=== PATIENT | female | born 1990 | race Caucasian/White ===

== ENCOUNTER 2017-08-30 07:21 | Emergency (ER) | payer OTHER ==
[~2017-08-30] VITALS: Ht 162.5 cm; Wt 52.2 kg
[2017-08-30] MEDS ORDERED: ZOFRAN ODT4 MG SL (09:29)
== END 2017-08-30 09:48 | disposition home or self-care (01) ==
LOC: ED 07:21
DX: L29.9 Pruritus, unspecified (principal); T78.40XA Allergy, unspecified, initial encounter; R42 Dizziness and giddiness; Z88.7 Allergy status to serum and vaccine; Y92.9 Unspecified place or not applicable

== ENCOUNTER 2017-09-17 12:34 | Emergency (ER) | payer OTHER ==
[~2017-09-17] VITALS: Ht 165.1 cm; Wt 50.8 kg
[~2017-09-17 12:34] MED LIST: ZOFRAN ODT4 MG SL
[2017-09-17 13:10] LABS: BASO # 0.1 10*3/uL (0.0-0.1); BASO % 0.7 % (0.0-1.0); EOS % 0.4 % (1.0-4.0); HEMOGLOBIN 13.5 g/dl (12.0-16.0); LYMPH # 2.4 10*3/uL (1.3-4.4); LYMPH % 26.3 % (27.0-41.0); MEAN CELL VOLUME 89.7 fl (81.0-99.0); MEAN CORPUSCULAR HGB 30.3 pg (27.0-31.0); MEAN CORPUSCULAR HGB CONC 33.8 g/dl (33.0-37.0); MEAN PLATELET VOLUME 10.6 fl (9.6-12.3); MONO # 0.5 10*3/uL (0.1-1.0); MONO % 5.8 % (3.0-9.0); NEUT # 6.1 10*3/uL (2.3-7.9); NEUT % 66.6 % (47.0-73.0); PLATELET COUNT AUTOMATED 249 10*3/uL (130-400); RED BLOOD COUNT 4.46 10*6/uL (4.10-5.10); RED CELL DISTRI WIDTH 13.1 % (0-14.5); WHITE BLOOD COUNT 9.1 10*3/uL (4.8-10.8)
[2017-09-17 13:13] LABS: BILIRUBIN NEGATIVE (NEGATIVE); BLOOD NEGATIVE (NEGATIVE); CLARITY SL CLOUDY (CLEAR); COLOR YELLOW (YELLOW); GLUCOSE NEGATIVE (NEGATIVE); KETONE 1+ (NEGATIVE); LEUKO ESTERASE NEGATIVE (NEGATIVE); NITRITE NEGATIVE (NEGATIVE); SPECIFIC GRAVITY <= 1.005 (1.005-1.030); UROBILINOGEN 0.2 E.U./dl (0.2-1.0)
[2017-09-17 13:19] LABS: BACTERIA TRACE; WBC 0-2 wbc/hpf (0-5)
[2017-09-17 13:25] LABS: ALBUMIN 3.9 gm/dl (3.1-4.5); ALKALINE PHOSPHATASE 40 U/L (45-117); BUN 12 mg/dl (7-24); CHLORIDE 106 mmol/L (98-107); POTASSIUM 3.7 mmol/L (3.5-5.1); SGOT/AST 18 IU/L (3-35); SGPT/ALT 19 U/L (12-78); SODIUM 138 mmol/L (136-145); TOTAL PROTEIN 7.7 gm/dL (6.4-8.2)
[2017-09-17] MEDS ORDERED: PRENATAL VITAM1 EAC4 PO (13:53)
[2017-09-17] MEDS ORDERED: DICLEGIS DR 101 EACH PO (13:54)
== END 2017-09-17 18:47 | disposition home or self-care (01) ==
LOC: ED 12:34
PROVIDERS: Nurse Practitioner Family
DX: O26.891 Other specified pregnancy related conditions, first trimester (principal); R10.30 Lower abdominal pain, unspecified; Z3A.01 Less than 8 weeks gestation of pregnancy; Z88.7 Allergy status to serum and vaccine

== ENCOUNTER → 2017-09-20 | Outpatient (CLI) | payer OTHER ==
[~2017-09-20] MED LIST changes: +DICLEGIS DR 101 EACH PO; +PRENATAL VITAM1 EAC4 PO
== END | disposition home or self-care (01) ==
LOC: LAB 11:44
DX: Z33.1 Pregnant state, incidental (principal)

== ENCOUNTER → 2017-09-23 | Outpatient (CLI) | payer OTHER | LOC: US 13:00 | DX: O34.81 Maternal care for other abnormalities of pelvic organs, first trimester (principal); O26.891 Other specified pregnancy related conditions, first trimester; N83.11 Corpus luteum cyst of right ovary; D25.2 Subserosal leiomyoma of uterus; Z3A.01 Less than 8 weeks gestation of pregnancy ==

== ENCOUNTER 2017-10-04 13:11 | Emergency (ER) | payer OTHER ==
[~2017-10-04] VITALS: Ht 162.5 cm; Wt 52.2 kg
== END 2017-10-04 14:38 | disposition home or self-care (01) ==
LOC: ED 13:11
DX: O46.91 Antepartum hemorrhage, unspecified, first trimester (principal); O26.891 Other specified pregnancy related conditions, first trimester; R10.9 Unspecified abdominal pain; Z88.7 Allergy status to serum and vaccine; Z91.040 Latex allergy status; Z79.899 Other long term (current) drug therapy

== ENCOUNTER 2020-05-24 13:43 | Emergency (ER) | payer SELFPAY ==
[~2020-05-24] VITALS: Ht 165.1 cm; Wt 52.2 kg
== END 2020-05-24 16:59 | disposition left against medical advice (07) ==
LOC: ED 13:43
DX: T63.441A Toxic effect of venom of bees, accidental (unintentional), initial encounter (principal); T78.40XA Allergy, unspecified, initial encounter; K21.9 Gastro-esophageal reflux disease without esophagitis; Z88.8 Allergy status to other drugs, medicaments and biological substances; Z91.040 Latex allergy status; Z79.899 Other long term (current) drug therapy; X58.XXXA Exposure to other specified factors, initial encounter; Y92.89 Other specified places as the place of occurrence of the external cause